=== PATIENT | female | born 1950 | race Caucasian/White ===

== ENCOUNTER → 2016-07-26 | Outpatient (CLI) | payer OTHER, BC ==
--- NOTE | 2016-07-26 12:12 | EKG ---
[address] [address] Measurements Intervals [place] Rate: 76 P: 77 VA: 194 QRS: 73 QRSD: 85 T: 63 QT: 374 QTc: 404 Interpretive Statements SINUS RHYTHM NONSPECIFIC T-WAVE FLATTENING No previous ECG available for comparison Electronically Signed On 07-26-16 15:43:06 MST by Neil Myers [email or web address]
[2016-07-26 12:19] LABS: BASOPHILS # (AUTO) 0.03 10*3/UL; BASOPHILS % (AUTO) 0.3 % (0-1); EOSINOPHILS % (AUTO) 2.2 % (0-8); HEMATOCRIT 31.4 % (37.0-47.0); HEMOGLOBIN 9.3 g/dL (12.0-16.0); IMM GRAN % (AUTO) 0.5 % (0-5); IMM GRAN# (AUTO) 0.05 10*3/UL; LYMPHOCYTES # (AUTO) 2.03 10*3/uL; MEAN CORPUSCULAR HEMOGLOBIN 23.8 PG (27-31); MEAN CORPUSCULAR HGB CONC 29.6 g/dL (33-37); MEAN PLATELET VOLUME 8.7 FL (7.4-12.2); MONOCYTES # (AUTO) 1.18 10*3/UL (0.3-0.8); MONOCYTES % (AUTO) 12.8 % (5-15); NEUTROPHILS # (AUTO) 5.75 10*3/UL; NEUTROPHILS % (AUTO) 62.2 % (50-80); RDW COEFFICIENT OF VARIATION 17.4 % (11.5-14.5); WHITE BLOOD COUNT 9.24 10^3/uL (4.8-10.8)
[2016-07-26 12:32] LABS: PLATELET MORPHOLOGY COMMENT NORMAL MORPHOLOGY (NORM)
[2016-07-26 13:21] LABS: BLOOD UREA NITROGEN 16 mg/dL (7-22); BUN/CREATININE RATIO 26.66 (6-20); CHLORIDE 107 meq/L (98-112); CREATININE 0.6 mg/dL (0.50-1.20); EST GLOMERULAR FILTRATION > 60 (>60 ml/min/1.73m(2)); POTASSIUM 3.5 meq/L (3.8-5.2); SODIUM 139 meq/L (135-145)
[2016-07-26 13:22] LABS: ASPARTATE AMINO TRANSFERASE 27 IU/L (8-39); BILIRUBIN,TOTAL 0.4 mg/dL (0.3-1.2); CALCIUM 8.8 mg/dL (8.7-10.7); GLUCOSE 85 mg/dL (78-110); TOTAL PROTEIN 6.8 g/dL (6.1-8.0)
== END ==
LOC: EKG 11:48
PROVIDERS: ATTEND Urology
DX: N28.9 Disorder of kidney and ureter, unspecified (principal)
CPT/HCPCS: 36415; 80053; 85025; 85610; 85730; 93005; 93010

== ENCOUNTER → 2016-08-22 | Outpatient (CLI) | payer OTHER, BC ==
[2016-08-22 13:19] LABS: BASOPHILS # (AUTO) 0.02 10*3/UL; BASOPHILS % (AUTO) 0.2 % (0-1); HEMATOCRIT 31.6 % (37.0-47.0); HEMOGLOBIN 9.3 g/dL (12.0-16.0); IMM GRAN % (AUTO) 0.3 % (0-5); IMM GRAN# (AUTO) 0.03 10*3/UL; LYMPHOCYTES # (AUTO) 1.53 10*3/uL; MEAN CORPUSCULAR HEMOGLOBIN 23.3 PG (27-31); MEAN CORPUSCULAR HGB CONC 29.4 g/dL (33-37); MEAN PLATELET VOLUME 9.1 FL (7.4-12.2); MONOCYTES # (AUTO) 0.88 10*3/UL (0.3-0.8); MONOCYTES % (AUTO) 8.1 % (5-15); NEUTROPHILS # (AUTO) 8.35 10*3/UL; NEUTROPHILS % (AUTO) 76.4 % (50-80); RDW COEFFICIENT OF VARIATION 17.1 % (11.5-14.5); WHITE BLOOD COUNT 10.92 10^3/uL (4.8-10.8)
[2016-08-22 13:20] LABS: PLATELET MORPHOLOGY COMMENT NORMAL MORPHOLOGY (NORM)
[2016-08-22 13:24] LABS: ASPARTATE AMINO TRANSFERASE 36 IU/L (8-39); BILIRUBIN,TOTAL 0.3 mg/dL (0.3-1.2); BLOOD UREA NITROGEN 19 mg/dL (7-22); BUN/CREATININE RATIO 27.14 (6-20); CALCIUM 9.3 mg/dL (8.7-10.7); CHLORIDE 100 meq/L (98-112); CREATININE 0.7 mg/dL (0.50-1.20); EST GLOMERULAR FILTRATION > 60 (>60 ml/min/1.73m(2)); GLUCOSE 114 mg/dL (78-110); POTASSIUM 4.2 meq/L (3.8-5.2); SODIUM 136 meq/L (135-145); TOTAL PROTEIN 6.8 g/dL (6.1-8.0)
== END ==
LOC: LAB 12:45
PROVIDERS: ATTEND Urology
DX: N13.0 Hydronephrosis with ureteropelvic junction obstruction (principal)
CPT/HCPCS: 36415; 80053; 85025

== ENCOUNTER → 2016-09-11 | Outpatient (CLI) | payer OTHER, BC ==
--- NOTE | 2016-09-11 12:52 | DI ---
US RETROPERITONEUM,09/11/2016 11:37 AM: Clinical History: Ureteral cancer. Previous Exam: None at this facility. Findings: Multiple grayscale and color Doppler sonographic images are obtained through the retroperitoneum. The urinary bladder is not well evaluated due to decompression by Schwartz catheter. The right kidney measures 11.0 cm in length without hydronephrosis nor nephrolithiasis. The left kidney measured 1.0 cm in length also without hydronephrosis nor nephrolithiasis. There is a left renal stent seen which limits evaluation. Impression: Normal retroperitoneal ultrasound.
== END ==
LOC: US 11:34
PROVIDERS: ATTEND Urology
DX: C66.2 Malignant neoplasm of left ureter (principal)
CPT/HCPCS: 76770

== ENCOUNTER → 2016-09-21 | Outpatient (CLI) | payer OTHER, BC ==
[2016-09-21 11:54] LABS: BASOPHILS # (AUTO) 0.02 10*3/UL; BASOPHILS % (AUTO) 0.2 % (0-1); EOSINOPHILS % (AUTO) 1.4 % (0-8); HEMATOCRIT 31.1 % (37.0-47.0); HEMOGLOBIN 9.3 g/dL (12.0-16.0); IMM GRAN % (AUTO) 0.3 % (0-5); IMM GRAN# (AUTO) 0.04 10*3/UL; LYMPHOCYTES # (AUTO) 2.03 10*3/uL; LYMPHOCYTES % (AUTO) 15.3 % (10-50); MEAN CORPUSCULAR HGB CONC 29.9 g/dL (33-37); MEAN PLATELET VOLUME 8.8 FL (7.4-12.2); MONOCYTES # (AUTO) 1.08 10*3/UL (0.3-0.8); MONOCYTES % (AUTO) 8.1 % (5-15); NEUTROPHILS # (AUTO) 9.92 10*3/UL; NEUTROPHILS % (AUTO) 74.7 % (50-80); RDW COEFFICIENT OF VARIATION 16.8 % (11.5-14.5); RED BLOOD COUNT 4.04 10^6/uL (4.20-5.40); WHITE BLOOD COUNT 13.28 10^3/uL (4.8-10.8)
[2016-09-21 12:02] LABS: PLATELET MORPHOLOGY COMMENT NORMAL MORPHOLOGY (NORM)
[2016-09-21 12:11] LABS: BILIRUBIN,URINE NEGATIVE (NEG); CLARITY,URINE Slightly Clo (CLEAR); GLUCOSE, URINE (UA) NEGATIVE (NEG); LEUKOCYTE ESTERASE ,URINE LARGE (NEG); NITRATE,URINE POSITIVE (NEG); OCCULT BLOOD,URINE LARGE (NEG); PROTEIN,URINE 100 mg/dl (NEG); UROBILINOGEN,URINE 0.2 EU/dL (0.2)
[2016-09-21 12:18] LABS: BLOOD UREA NITROGEN 22 mg/dL (7-22); CALCIUM 9.5 mg/dL (8.7-10.7); CHLORIDE 101 meq/L (98-112); CREATININE 0.8 mg/dL (0.50-1.20); EST GLOMERULAR FILTRATION > 60 (>60 ml/min/1.73m(2)); GLUCOSE 96 mg/dL (78-110); POTASSIUM 3.7 meq/L (3.8-5.2); SODIUM 140 meq/L (135-145)
[2016-09-21 12:22] LABS: URINE SAMPLE TYPE CLEAN CATCH URINE
[2016-09-21 12:23] LABS: BACTERIA,URINE MODERATE; WBC,URINE PACKED
== END ==
LOC: LAB 11:23
PROVIDERS: ATTEND Urology
DX: C66.2 Malignant neoplasm of left ureter (principal); R82.99 Other abnormal findings in urine
CPT/HCPCS: 36415; 80048; 81001; 85025; 87077; 87088; 87186

== ENCOUNTER → 2016-10-03 | Outpatient (CLI) | payer OTHER, BC ==
[2016-10-03 14:32] LABS: BILIRUBIN,URINE NEGATIVE (NEG); CLARITY,URINE Slightly Clo (CLEAR); COLOR,URINE YELLOW; GLUCOSE, URINE (UA) NEGATIVE (NEG); NITRATE,URINE NEGATIVE (NEG); OCCULT BLOOD,URINE MODERATE (NEG); PH,URINE 5.5 (5.0-8.5); PROTEIN,URINE 100 mg/dl (NEG); UROBILINOGEN,URINE 0.2 EU/dL (0.2)
[2016-10-03 14:34] LABS: URINE SAMPLE TYPE VOIDED SPECIMEN
[2016-10-03 14:40] LABS: WBC,URINE 50-100
[2016-10-03 14:41] LABS: BACTERIA,URINE FEW
== END ==
LOC: LAB 14:13
PROVIDERS: ATTEND Urology
DX: N39.0 Urinary tract infection, site not specified (principal); R82.99 Other abnormal findings in urine
CPT/HCPCS: 81001; 87077; 87088; 87185; 87186; 87205

== ENCOUNTER → 2016-10-08 | Outpatient (CLI) | payer OTHER, BC ==
[2016-10-08 13:27] LABS: HEMATOCRIT 30.3 % (37.0-47.0); HEMOGLOBIN 8.7 g/dL (12.0-16.0); MEAN CORPUSCULAR HEMOGLOBIN 21.8 PG (27-31); MEAN CORPUSCULAR HGB CONC 28.7 g/dL (33-37); MEAN PLATELET VOLUME 9.5 FL (7.4-12.2); RED BLOOD COUNT 3.99 10^6/uL (4.20-5.40)
[2016-10-08 13:29] LABS: BLOOD UREA NITROGEN 14 mg/dL (7-22); CALCIUM 9.4 mg/dL (8.7-10.7); EST GLOMERULAR FILTRATION > 60 (>60 ml/min/1.73m(2)); MAGNESIUM 1.8 mg/dL (1.6-2.4); PHOSPHORUS 5.1 mg/dl (2.4-4.3); SERUM ALBUMIN 3.8 g/dL (3.5-4.8)
== END ==
LOC: LAB 12:42
PROVIDERS: ATTEND Family Medicine
DX: E03.9 Hypothyroidism, unspecified (principal); E78.2 Mixed hyperlipidemia; K52.9 Noninfective gastroenteritis and colitis, unspecified; M81.0 Age-related osteoporosis without current pathological fracture; Z79.83 Long term (current) use of bisphosphonates
CPT/HCPCS: 36415; 80053; 83735; 84100; 84443; 85027

== ENCOUNTER → 2016-10-15 | Outpatient (CLI) | payer OTHER, BC ==
[2016-10-15 17:12] LABS: BILIRUBIN,URINE NEGATIVE (NEG); CLARITY,URINE SLIGHTLY CLOUDY (CLEAR); COLOR,URINE YELLOW; GLUCOSE, URINE (UA) NEGATIVE (NEG); NITRATE,URINE POSITIVE (NEG); OCCULT BLOOD,URINE LARGE (NEG); PROTEIN,URINE >300 mg/dl (NEG); URINE SAMPLE TYPE VOIDED SPECIMEN; UROBILINOGEN,URINE 0.2 mg/dL (0.2)
[2016-10-15 17:13] LABS: BACTERIA,URINE MODERATE; RBC,URINE >100 /hpf; WBC,URINE >100
== END ==
LOC: LAB 16:19
PROVIDERS: ATTEND Nurse Practitioner
DX: E83.39 Other disorders of phosphorus metabolism (principal); K51.90 Ulcerative colitis, unspecified, without complications; D50.9 Iron deficiency anemia, unspecified; R30.0 Dysuria; R82.99 Other abnormal findings in urine
CPT/HCPCS: 81001; 82728; 83540; 83550; 84100; 87077; 87088; 87186

== ENCOUNTER → 2016-10-19 | Outpatient (CLI) | payer OTHER, BC | LOC: MMPC 09:00 | PROVIDERS: ATTEND Family Medicine | DX: M81.0 Age-related osteoporosis without current pathological fracture (principal); K52.9 Noninfective gastroenteritis and colitis, unspecified; F43.10 Post-traumatic stress disorder, unspecified; D50.0 Iron deficiency anemia secondary to blood loss (chronic); E83.39 Other disorders of phosphorus metabolism | CPT/HCPCS: G0463; J0897; 99213 ==

== ENCOUNTER → 2016-10-22 | Outpatient (CLI) | payer OTHER, BC | LOC: LAB 14:17 | PROVIDERS: ATTEND Family Medicine | DX: E83.39 Other disorders of phosphorus metabolism (principal); M81.0 Age-related osteoporosis without current pathological fracture | CPT/HCPCS: 36415; 84100 ==

== ENCOUNTER → 2016-12-06 | Outpatient (CLI) | payer OTHER, BC ==
[2016-12-06 11:46] LABS: BASOPHILS # (AUTO) 0.06 10*3/UL; BASOPHILS % (AUTO) 0.6 % (0-1); EOSINOPHILS # (AUTO) 0.12 10*3/UL; EOSINOPHILS % (AUTO) 1.3 % (0-8); HEMATOCRIT 39.2 % (37.0-47.0); HEMOGLOBIN 12.4 g/dL (12.0-16.0); LYMPHOCYTES # (AUTO) 2.97 10*3/uL; MEAN CORPUSCULAR HEMOGLOBIN 26.1 PG (27-31); MEAN CORPUSCULAR HGB CONC 31.6 g/dL (33-37); MEAN CORPUSCULAR VOLUME 82.5 FL (81-99); MEAN PLATELET VOLUME 9.8 FL (7.4-12.2); MONOCYTES # (AUTO) 0.85 10*3/UL (0.3-0.8); NEUTROPHILS # (AUTO) 5.43 10*3/UL; NEUTROPHILS % (AUTO) 57.5 % (50-80); RED BLOOD COUNT 4.75 10^6/uL (4.20-5.40)
[2016-12-06 12:44] LABS: PLATELET MORPHOLOGY COMMENT NORMAL MORPHOLOGY (NORM); WBC MORPHOLOGY COMMENT NORMAL MORPHOLOGY (NORM)
[2016-12-06 12:47] LABS: RBC MORPHOLOGY COMMENT SEE COMMENTS (NORM)
== END ==
LOC: LAB 11:28
PROVIDERS: ATTEND Internal Medicine Gastroenterology
DX: K51.90 Ulcerative colitis, unspecified, without complications (principal)
CPT/HCPCS: 36415; 85025

== ENCOUNTER → 2017-01-24 | Outpatient (CLI) | payer OTHER, BC ==
[2017-01-24 14:06] LABS: BASOPHILS # (AUTO) 0.03 10*3/UL; BASOPHILS % (AUTO) 0.3 % (0-1); EOSINOPHILS # (AUTO) 0.09 10*3/UL; EOSINOPHILS % (AUTO) 0.9 % (0-8); HEMATOCRIT 37.2 % (37.0-47.0); HEMOGLOBIN 12.2 g/dL (12.0-16.0); LYMPHOCYTES # (AUTO) 3.13 10*3/uL; MEAN CORPUSCULAR HEMOGLOBIN 28.4 PG (27-31); MEAN CORPUSCULAR HGB CONC 32.8 g/dL (33-37); MEAN CORPUSCULAR VOLUME 86.5 FL (81-99); MEAN PLATELET VOLUME 9.7 FL (7.4-12.2); MONOCYTES # (AUTO) 0.97 10*3/UL (0.3-0.8); MONOCYTES % (AUTO) 9.3 % (5-15); NEUTROPHILS # (AUTO) 6.25 10*3/UL; NEUTROPHILS % (AUTO) 59.5 % (50-80)
[2017-01-24 14:07] LABS: PLATELET MORPHOLOGY COMMENT NORMAL MORPHOLOGY (NORM); RBC MORPHOLOGY COMMENT NORMAL MORPHOLOGY (NORM); WBC MORPHOLOGY COMMENT NORMAL MORPHOLOGY (NORM)
[2017-01-24 14:15] LABS: BLOOD UREA NITROGEN 20 mg/dL (7-22); BUN/CREATININE RATIO 28.57 (6-20); CALCIUM 9.7 mg/dL (8.7-10.7); EST GLOMERULAR FILTRATION > 60 (>60 ml/min/1.73m(2)); SERUM ALBUMIN 4.5 g/dL (3.5-4.8)
== END ==
LOC: LAB 13:52
PROVIDERS: ATTEND Urology
DX: C66.2 Malignant neoplasm of left ureter (principal)
CPT/HCPCS: 36415; 80053; 85025

== ENCOUNTER → 2017-02-20 | Outpatient (CLI) | payer OTHER, BC ==
--- NOTE | 2017-02-20 13:26 | DI ---
CT ABD W/WO CN AND PELVIS W/W0,02/20/2017 9:13 AM: Clinical History: Left-sided ureteral cancer. Previous Exam: June 07, 2016 Findings: Multiple helically acquired CT images are obtained through the abdomen and pelvis following a 3 phase renal protocol, and demonstrate no evidence of enhancing mass within the kidneys. There is massive left-sided hydronephrosis with dilation of the left ureter throughout its course. Ev en after a 15 minute delay, there is no contrast seen within the left ureter, and there is an abrupt cut off at the distal ureter near the ureterovesicular junction. The ureterovesicular junction is superiorly located within the lower abdomen on the left and there is traction on the left posterior urinary bladder near the ureterovesicular junction with some vague so ft tissue noted. Moderate stool seen throughout the colon. The gallbladder is unremarkable. The pancreas and adrenals are unremarkable. Degenerative changes of the spine are seen. The lung bases are clear. There is no retroperitoneal lymphadenopathy. Impression: 1. Severe left hydronephrosis and hydroureter which ends abruptly at an obstruction of the left uret erovesicular junction. There has been traction of the ureter since the prior exam. This may represent postsurgical changes. If there has been no history of surgery, then this is worrisome for traction r elated to malignancy. Correlate clinically and recommend cystoscopy and ureteroscopy for further eval uation.
== END ==
LOC: CT 08:53
PROVIDERS: ATTEND Urology
DX: C66.2 Malignant neoplasm of left ureter (principal); N13.0 Hydronephrosis with ureteropelvic junction obstruction
CPT/HCPCS: 74178